=== PATIENT | male | born 1980 | race Caucasian/White ===

== ENCOUNTER 2021-06-08 22:53 | Emergency (ER) | payer SELFPAY ==
[2021-06-09] MEDS ORDERED: Lactated Ringers 500 ML IV ONE (01:28)
[2021-06-09] MEDS ORDERED: Albuterol/Ipratropium 3.0-0.5 MG/3 ML Neb Soln NEB ONE ×3 (01:31→04:12)
[2021-06-09 02:01] LABS: CORONAVIRUS COVID-19 NAA NEGATIVE (NEGATIVE)
[2021-06-09] MEDS ORDERED: Lactated Ringers 1,000 ML IV ONE (02:01)
[2021-06-09 02:19] LABS: ANION GAP 17.3 mEq/L (7-13); CHLORIDE,CL 104 mmol/L (98-107); SODIUM,NA 141 mmol/L (136-145)
[2021-06-09 02:34] LABS: O2 DELIVERY DEVICE NASAL CANNULA
[2021-06-09 02:35] LABS: ALLEN TEST Performed; BASE EXCESS ARTERIAL -1 mmol/L ((-2)-(+3)); BICARBONATE,ARTERIAL 22.3 mmol/L (22-26); O2 SATURATION ARTERIAL 89 % (95-100); PCO2 ARTERIAL 36 mmHg (35-45); PO2 ARTERIAL 53 mmHg (70-100)
[2021-06-09] MEDS ORDERED: methylPREDNISolone Sodium Succinate 125 MG/2 ML SDV IVPUSH ONE (05:35)
[2021-06-09] MEDS ORDERED: Potassium Chloride 10 MEQ Tab.ER PO ONE (05:55)
[2021-06-09] MEDS ORDERED: Levofloxacin/Dextrose 5%-Water 750 MG in Premix Bag 1 BAG IV ONE (06:02)
[2021-06-09] MEDS ORDERED: cefTRIAXone 2 GM in Sodium Chloride 0.9% 100 ML IV ONE (06:10)
[2021-06-09] MEDS ORDERED: Sodium Chloride 0.9% 1,000 ML IV SCH (06:30)
== END 2021-06-09 10:10 ==
LOC: DL.ED 22:53
DX: J18.9 Pneumonia, unspecified organism (principal); R09.02 Hypoxemia; Z88.1 Allergy status to other antibiotic agents; Z86.16 Personal history of COVID-19; Z87.891 Personal history of nicotine dependence; Z20.822 Contact with and (suspected) exposure to COVID-19
CPT/HCPCS: 0240U; 36415; 36600; 71045; 80053; 82550; 82803; 83735; 83880; 84484; 85025; 85379; 85610; 87040; 93005; 96365; 96375; 99285; A9270; J0696; J2930; J7030; J7120; J7620-GY